=== PATIENT | male | born 1960 | race Asian ===

== ENCOUNTER 2017-03-25 03:31 | Emergency (ER) | payer BC ==
[~2017-03-25] VITALS: Ht 175.3 cm; Wt 100.0 kg
[2017-03-25] MEDS ORDERED: LOSA50TA37 PO (03:44)
[2017-03-25 04:08] LABS: GLUCOSE,POINT OF CARE 133 MG/DL (70-110)
[2017-03-25 04:43] LABS: CALCIUM, TOTAL 8.9 mg/dL (8.8-10.5); CREATININE 1.25 mg/dL (0.60-1.30); POTASSIUM 3.6 mmol/L (3.5-5.1)
[2017-03-25 04:46] LABS: BASOPHILS % (AUTO) 0.8 % (0.0-2.0); EOSINOPHILS % (AUTO) 1.9 % (1.0-6.0); HEMATOCRIT 49.8 % (41-53); HEMOGLOBIN 16.9 g/dL (13.5-17.5); LYMPHOCYTES # (AUTO) 2.3 K/uL (1.0-4.8); LYMPHOCYTES % (AUTO) 29.4 % (22.0-44.0); MEAN CORPUSCULAR HEMOGLOBIN 29.4 pg (26.0-34.0); MEAN CORPUSCULAR HGB CONC 33.9 G/dL (31.0-37.0); MEAN CORPUSCULAR VOLUME 87 fL (80-100); MONOCYTES # (AUTO) 0.5 K/uL (0.1-1.0); MONOCYTES % (AUTO) 6.8 % (2.0-9.0); NEUTROPHILS # (AUTO) 4.9 K/uL (1.8-7.7); NEUTROPHILS % (AUTO) 61.1 % (40.0-70.0); PLATELET COUNT (AUTO) 224 K/uL (150-450); RED BLOOD CELL COUNT(AUTO) 5.75 MIL/uL (4.50-5.90); RED CELL DISTRIBUTION WIDTH 13.3 % (11.5-14.5)
[2017-03-25 04:48] LABS: BILIRUBIN,TOTAL 0.8 mg/dL (0.1-1.0)
[2017-03-25 04:50] LABS: AMPHET/METH SCREEN,URINE NEGATIVE (NEGATIVE); BARBITURATE SCREEN, URINE NEGATIVE (NEGATIVE); BENZODIAZEPINES SCREEN,URINE NEGATIVE (NEGATIVE); CANNABINOID SCREEN,URINE NEGATIVE (NEGATIVE); COCAINE SCREEN,URINE NEGATIVE (NEGATIVE); METHADONE SCREEN, URINE NEGATIVE (NEGATIVE); OPIATE SCREEN,URINE NEGATIVE (NEGATIVE); PHENCYCLIDINE SCREEN,URINE NEGATIVE (NEGATIVE)
[2017-03-25 05:04] VITALS: BP 149/67
== END 2017-03-25 05:42 | disposition left against medical advice (07) ==
LOC: EMS 03:33
DX: G45.9 Transient cerebral ischemic attack, unspecified (principal); I10 Essential (primary) hypertension; F17.210 Nicotine dependence, cigarettes, uncomplicated
CPT/HCPCS: 70450; 82962; 93005; 99285

== ENCOUNTER 2022-09-27 12:29 | Emergency (ER) | payer BC, OTHER ==
[~2022-09-27] VITALS: Ht 177.8 cm; Wt 102.3 kg
[~2022-09-27 12:29] MED LIST: LOSA-382 PO
[2022-09-27] MEDS ORDERED: ATOR20TA65 PO (12:40)
[2022-09-27] MEDS ORDERED: LOSA100T59 PO (12:40)
[2022-09-27] MEDS ORDERED: METO-391 PO (12:40)
[2022-09-27] MEDS ORDERED: CORTSUSP AD ×2 (15:54→17:36)
[2022-09-27] MEDS ORDERED: AMOX500C2 PO ×2 (15:54→17:36)
[2022-09-27 17:28] VITALS: BP 190/94; PULSE 54; RESP 18; TEMP 98.3
== END 2022-09-27 17:47 | disposition home or self-care (01) ==
LOC: EMS 12:32
DX: H60.91 Unspecified otitis externa, right ear (principal); I10 Essential (primary) hypertension; F17.210 Nicotine dependence, cigarettes, uncomplicated
CPT/HCPCS: 99283